=== PATIENT | female | born 1990 | race Caucasian/White ===

== ENCOUNTER 2017-09-15 09:12 | Emergency (ER) | payer OTHER ==
[~2017-09-15] VITALS: Ht 162.6 cm; Wt 77.1 kg
== END 2017-09-15 10:08 | disposition home or self-care (01) ==
LOC: ER 09:12
DX: H01.8 Other specified inflammations of eyelid (principal)

== ENCOUNTER 2019-06-30 15:08 | Emergency (ER) | payer OTHER ==
[~2019-06-30] VITALS: Ht 162.6 cm; Wt 75.3 kg
== END 2019-06-30 19:37 | disposition home or self-care (01) ==
LOC: ER 15:08
DX: J06.9 Acute upper respiratory infection, unspecified (principal); B96.0 Mycoplasma pneumoniae [M. pneumoniae] as the cause of diseases classified elsewhere